=== PATIENT | female | born 1955 | race Caucasian/White ===

== ENCOUNTER 2025-06-22 18:10 | Emergency (ER) | payer OTHER ==
--- NOTE | 2025-06-22 18:57 | EDPHYS ---
Physician Documentation [facility] Name: Tonia Teixeira Age: 70 yrs Sex: Female : 1955 Arrival Date: 06/22/2025 Time: 18:10 Bed 5 Private MD: ED Physician Deangelo Arredondo HPI: 06/22 18:29 This 70 yrs old Female presents to ER via EMS with complaints of Fall Injury. samuel 18:29 Details of fall: The patient fell from seated position, out of a chair. Onset: The samuel symptoms/episode began/occurred just prior to arrival. Associated injuries: The patient sustained injury to the head. Severity of symptoms: At their worst the symptoms were mild, in the emergency department the symptoms are unchanged. The patient has not experienced similar symptoms in the past. Historical: - Allergies: 18:25 No Known Allergies; ar8 - PMHx: 18:25 Bipolar disorder; Hypothyroidism; Depressive disorder; Hypertensive disorder; tremors; ar8 Anxiety; Rheumatoid arthritis; - Immunization history:: Adult Immunizations up to date. - Infectious Disease History:: Denies. - Social history:: Smoking status: Patient denies any tobacco usage or history of. ROS: 18:31 Constitutional: Negative for fever, chills, and weight loss, Eyes: Negative for injury, samuel pain, redness, and discharge, ENT: Negative for injury, pain, and discharge, Neck: Negative for injury, pain, and swelling, Cardiovascular: Negative for chest pain, palpitations, and edema, Respiratory: Negative for shortness of breath, cough, wheezing, and pleuritic chest pain, Abdomen/GI: Negative for abdominal pain, nausea, vomiting, diarrhea, and constipation, Back: Negative for injury and pain, : Negative for injury, bleeding, discharge, and swelling, MS/Extremity: Negative for injury and deformity, Skin: Negative for injury, rash, and discoloration, Psych: Negative for depression, anxiety, suicide ideation, homicidal ideation, and hallucinations, Allergy/Immunology: Negative for hives, rash, and allergies, Endocrine: Negative for neck swelling, polydipsia, polyuria, polyphagia, and marked weight changes, 18:31 Neuro: Positive for headache, Exam: 18:31 Constitutional: This is a well developed, well nourished patient who is awake, alert, samuel and in no acute distress. Eyes: Pupils equal round and reactive to light, extra-ocular motions intact. Lids and lashes normal. Conjunctiva and sclera are non-icteric and not injected. Cornea within normal limits. Periorbital areas with no swelling, redness, or edema. ENT: Nares patent. No nasal discharge, no septal abnormalities noted. Tympanic membranes are normal and external auditory canals are clear. Oropharynx with no redness, swelling, or masses, exudates, or evidence of obstruction, uvula midline. Mucous membranes moist. Neck: Trachea midline, no thyromegaly or masses palpated, and no cervical lymphadenopathy. Supple, full range of motion without nuchal rigidity, or vertebral point tenderness. No Meningismus. Chest/axilla: Normal chest wall appearance and motion. Nontender with no deformity. No lesions are appreciated. Cardiovascular: Regular rate and rhythm with a normal S1 and S2. No gallops, murmurs, or rubs. Normal PMI, no JVD. No pulse deficits. Respiratory: Lungs have equal breath sounds bilaterally, clear to auscultation and percussion. No rales, rhonchi or wheezes noted. No increased work of breathing, no retractions or nasal flaring. Abdomen/GI: Soft, non-tender, with normal bowel sounds. No distension or tympany. No guarding or rebound. No evidence of tenderness throughout. Back: No spinal tenderness. No costovertebral tenderness. Full range of motion. Female : Normal external genitalia. Skin: Warm, dry with normal turgor. Normal color with no rashes, no lesions, and no evidence of cellulitis. MS/ Extremity: Pulses equal, no cyanosis. Neurovascular intact. Full, normal range of motion., bilateral aka Neuro: Awake and alert, GCS 15, oriented to person, place, time, and situation. Cranial nerves II-XII grossly intact. Motor strength 5/5 in all extremities. Sensory grossly intact. Cerebellar exam normal. Normal gait. Psych: Awake, alert, with orientation to person, place and time. Behavior, mood, and affect are within normal limits. 18:31 Head/face: Noted is contusion, that is superficial, of the left side of the back of head, left occipital area, right side of the back of head and right occipital area, Vital Signs: 18:10 BP 114 / 85; Pulse 104; Resp 22 S; Temp 98.7(O); Pulse Ox 96% on R/A; Weight 47.63 kg; ar8 Height 5 ft. 4 in. ; Pain 0/10; 18:52 BP 118 / 78; Pulse 94; Resp 18; Pulse Ox 96% on R/A; ar8 18:10 Body Mass Index 18.02 (47.63 kg, 162.56 cm) ar8 18:10 Pain Scale: Adult ar8 [place] Coma Score: 18:32 Eye Response: spontaneous(4). Motor Response: obeys commands(6). Verbal Response: samuel oriented(5). Total: 15. MDM: 18:18 Medical Screening Exam initiated samuel 18:32 Differential diagnosis: Contusion of Hematoma on Intracranial bleed- Concussion without samuel LOC. cerebral contusion. Differential diagnosis: closed head injury, contusion, fracture, multiple trauma, sprain, strain. Data reviewed: vital signs, nurses notes, EMS record, radiologic studies, CT scan. Consideration of Admission/Observation Escalation of care including admission/observation considered. I considered the following discharge prescriptions or medication management in the emergency department Medications were administered in the Emergency Department. See MAR. Independent interpretation of the following test(s) in the Emergency Department CT Scan: My interpretation is ct head and c spine. 06/22 18:23 Order name: CT Head C Spine samuel Administered Medications: No medications were administered Disposition Summary: 06/22/25 18:56 Discharge Ordered Notes: Location: Home samuel Problem: new samuel Symptoms: have improved samuel Condition: Stable samuel Diagnosis - Fall from non-moving wheelchair samuel - Unspecified injury of head, initial encounter samuel Followup: samuel - With: Private Physician - When: 2 - 3 days - Reason: Recheck today's complaints, Continuance of care, Re-evaluation by your physician Discharge Instructions: - Discharge Summary Sheet samuel - Head Injury, Adult samuel - Fall Prevention in the Home, Adult samuel - Fall Prevention in the Home, Adult, [id number] samuel - Head Injury, Adult, [id number] samuel - Fall Prevention in Hospitals, Adult samuel Forms: - Medication Reconciliation Form samuel - Antibiotic Education samuel - Prescription Opioid Use samuel - Patient Portal Instructions samuel - Leadership Thank You Letter samuel Signatures: Dispatcher [employer] EDDeangelo Kay MD MD cha Rodriguez, Andrea RN RN ar8 Corrections: (The following items were deleted from the chart) 18:23 18:23 Head C Spine MPR Wo Con+[id number].RAD.BRZ ordered. EDMS EDMS
--- NOTE | 2025-06-22 18:57 | ER ---
Nurse's Notes [facility] Name: Tonia Teixeira Age: 70 yrs Sex: Female : 1955 Arrival Date: 06/22/2025 Time: 18:10 Bed 5 Private MD: Diagnosis: Fall from non-moving wheelchair;Unspecified injury of head, initial encounter Presentation: 06/22 18:10 Chief complaint: EMS states: Per EMS, patient fell out of her WC at \[id number]. She hit her ar8 head and has a hematoma to right occiput. Fall was witnessed and [place] staff denied LOC. 18:10 Coronavirus screen: At this time, the client does not indicate any symptoms associated ar8 with coronavirus-19. Ebola Screen: No symptoms or risks identified at this time. Initial Sepsis Screen: Does the patient meet any 2 criteria? No. Patient's initial sepsis screen is negative. Does the patient have a suspected source of infection? No. Patient's initial sepsis screen is negative. Risk Assessment: Do you want to hurt yourself or someone else? Patient reports no desire to harm self or others. Onset of symptoms was June 22, 2025 at 17:30. 18:10 Method Of Arrival: EMS: [facility] ar8 18:10 Acuity: SHANNAN 3 ar8 Triage Assessment: 18:25 General: Appears in no apparent distress. Behavior is calm, cooperative. Pain: ar8 Complains of pain in coccyx. Neuro: Level of Consciousness is awake, alert, obeys commands, Oriented to person, place, time, situation. Cardiovascular: Rhythm is sinus tachycardia. Respiratory: Airway is patent Respiratory effort is even, unlabored, Respiratory pattern is regular, symmetrical. GI: No signs and/or symptoms were reported involving the gastrointestinal system. : No signs and/or symptoms were reported regarding the genitourinary system. Derm: hematoma to right occiput. Musculoskeletal: No signs and/or symptoms reported regarding the musculoskeletal system. Historical: - Allergies: 18:25 No Known Allergies; ar8 - PMHx: 18:25 Bipolar disorder; Hypothyroidism; Depressive disorder; Hypertensive disorder; tremors; ar8 Anxiety; Rheumatoid arthritis; - Immunization history:: Adult Immunizations up to date. - Infectious Disease History:: Denies. - Social history:: Smoking status: Patient denies any tobacco usage or history of. Screenin:27 [facility] ED Fall Risk Assessment (Adult) History of falling in the last 3 months, ar8 including since admission Yes- single mechanical fall (1 pt) Confusion or Disorientation No (0 pts) Intoxicated or Sedated No (0 pts) Impaired Gait No (0 pts) Mobility Assist Device Used No (0 pt) Altered Elimination No (0 pt) Score/Fall Risk Level 0 - 2 = Low Risk Oriented to surroundings, Maintained a safe environment. Abuse screen: Denies threats or abuse. Nutritional screening: No deficits noted. Tuberculosis screening: No symptoms or risk factors identified. Assessment: 18:27 Reassessment: See triage assessment. ar8 Vital Signs: 18:10 BP 114 / 85; Pulse 104; Resp 22 S; Temp 98.7(O); Pulse Ox 96% on R/A; Weight 47.63 kg; ar8 Height 5 ft. 4 in. ; Pain 0/10; 18:52 BP 118 / 78; Pulse 94; Resp 18; Pulse Ox 96% on R/A; ar8 18:10 Body Mass Index 18.02 (47.63 kg, 162.56 cm) ar8 18:10 Pain Scale: Adult ar8 [place] Coma Score: 18:32 Eye Response: spontaneous(4). Motor Response: obeys commands(6). Verbal Response: samuel oriented(5). Total: 15. ED Course: 18:10 Bed in low position. Call light in reach. Side rails up X2. ar8 18:10 Provided Education on: plan of care. Client placed on continuous cardiac and pulse ar8 oximetry monitoring. NIBP monitoring applied. Warm blanket given. 18:10 No provider procedures requiring assistance completed. ar8 18:16 Patient arrived in ED. ll1 18:18 Deangelo Arredondo MD is Attending Physician. samuel 18:20 Alexander Philip, DARRIN is Primary Nurse. ar8 18:24 Triage completed. ar8 18:25 Arm band placed on right wrist. ar8 18:[address] via stretcher. ar8 18:46 Patient moved back from CT. ar8 18:58 CT Head C Spine In Process Unspecified. EDMS 19:57 Patient did not have IV access during this emergency room visit. vc1 Administered Medications: No medications were administered Medication: 18:27 VIS not applicable for this client. ar8 Outcome: 18:56 Discharge ordered by MD. baker 19:56 Discharged to intermediate. Report called to [place] Pt daughter to transport back vc1 to [facility] 19:56 Condition: stable 19:56 Discharge instructions given to family, Instructed on discharge instructions, follow up and referral plans. Demonstrated understanding of instructions, follow-up care, 19:58 Patient left the ED. [facility] Signatures: Dispatcher [employer] EDDeangelo Kay MD MD cha Lewis, Lynsay, RN RN ll1 Emma Hudson RN RN vc1 Alexander Philip RN RN ar8
--- NOTE | 2025-06-22 18:59 | RAD REPORT ---
EXAM: CT brain without contrast HISTORY: TRAUMA COMPARISON: None TECHNIQUE: Multiple contiguous axial images were obtained and a CT of the brain without contrast. Sag ittal and coronal reformats were performed. One or more of the following dose reduction techniques were used: Automated exposure control, adjust ment of the mA and/or kV according to patient size, and/or iterative reconstruction. FINDINGS: No evidence of hydrocephalus, intracranial hemorrhage, or extra-axial fluid collection. Moderate brain atrophy with moderate periventricular and deep white matter chronic microvascular isc hemic changes present. No evidence of midline shift or areas of brain edema. The calvarium is intact. The visualized paranasal sinuses and mastoid air cells are essentially clear . EXAM: CT of the cervical spine without contrast HISTORY: Neck pain, injury TRAUMA TECHNIQUE: Multiple contiguous axial images were obtained in a CT of the cervical spine without contr ast. Sagittal and coronal reformats were performed. FINDINGS: Mild degenerative anterolisthesis C3 on 4. No evidence of acute fracture or subluxation.. N o prevertebral soft tissue swelling is seen. There is motion artifact in position artifact which mildly limits assessment. The lung apices are unremarkable. COMBINED IMPRESSION: No evidence of acute intracranial abnormality. No evidence of acute osseous abnormality of the cervical spine. Examination somewhat limited by motion artifact and nonstandard anatomic positioning.
[2025-06-22 21:43] VITALS: TEMP 98.7; O2SAT 96
[2025-06-22 21:44] VITALS: BP 118/78
== END 2025-06-22 19:58 | disposition home or self-care (01) ==
LOC: ER 18:10
DX: S09.90XA Unspecified injury of head, initial encounter (principal); W05.0XXA Fall from non-moving wheelchair, initial encounter
CPT/HCPCS: 70450; 72125; 99284